=== PATIENT | female | born 1955 | race Caucasian/White ===

== ENCOUNTER 2017-03-19 20:38 | Emergency (ER) | payer MEDICARE ==
[2017-03-19] MEDS ORDERED: NORMAL SALINE 1000 ML 1,000 ML IV ONE (21:38)
--- NOTE | 2017-03-19 21:40 | ER Document Report ---
ED General - General Chief Complaint: Diarrhea Stated Complaint: WEAKNESS/BODYACHES Time Seen by Provider: 03/19/17 21:38 Notes: The patient is a 61-year-old female presents with generalized body aches and weakness for the past 3 days. She said that she has had some watery diarrhea and nasal congestion during this time. Patient said that her diarrhea has now resolved. Patient denies nausea, vomiting, recent travel, blood in stool, fevers, sick contacts, chest pain, shortness of breath or leg swelling. TRAVEL OUTSIDE OF THE [place] IN LAST 30 DAYS: No - Related Data Allergies/Adverse Reactions: No Known Allergies Allergy (Verified 03/19/17 20:41) Past Medical History - General Information source: Patient - Social History Smoking Status: Unknown if Ever Smoked Family History: None - Past Medical History Cardiac Medical History: Denies: Hx Atrial Fibrillation, Hx Congestive Heart Failure, Hx Coronary Artery Disease, Hx Heart Attack, Hx Hypercholesterolemia, Hx Hypertension, Hx Peripheral Vascular Disease, Hx Heart Murmur Musculoskeltal Medical History: Reports Hx Arthritis, Denies Hx Fibromyalgia, Denies Hx Muscular Dystrophy Psychiatric Medical History: Reports: Hx Depression Denies: Hx Bipolar Disorder, Hx Post Traumatic Stress Disorder, Hx Schizophrenia Traumatic Medical History: Denies: Hx Fractures Past Surgical History: Reports: Hx Orthopedic Surgery - back right knee. Denies : Hx Appendectomy, Hx Bowel Surgery, Hx Section, Hx Cholecystectomy, Hx Coronary Artery Bypass Graft, Hx Gastric Bypass Surgery, Hx Herniorrhaphy, Hx Hysterectomy, Hx Mastectomy, Hx Pacemaker, Hx Tonsillectomy, Hx Tubal Ligation - Immunizations Hx Diphtheria, Pertussis, Tetanus Vaccination: No Review of Systems - Review of Systems Notes: REVIEW OF SYSTEMS: CONSTITUTIONAL: -fevers, -chills EENT: -eye pain, -difficulty swallowing, +nasal congestion CARDIOVASCULAR: -chest pain, -syncope. RESPIRATORY: -cough, -SOB GASTROINTESTINAL: -abdominal pain, -nausea, -vomiting, +diarrhea GENITOURINARY: -dysuria, -hematuria MUSCULOSKELETAL: -back pain, -neck pain SKIN: -rash or skin lesions. HEMATOLOGIC: -easy bruising or bleeding. LYMPHATIC: -swollen, enlarged glands. NEUROLOGICAL: -altered mental status or loss of consciousness, -headache, - neurologic symptoms PSYCHIATRIC: -anxiety, -depression. ALL OTHER SYSTEMS REVIEWED AND NEGATIVE. Physical Exam - Vital signs Vitals: Temp Pulse Resp BP Pulse Ox 98.5 F 77 20 133/69 H 97 03/19/17 20:49 03/19/17 20:49 03/19/17 20:49 03/19/17 20:49 03/19/17 20:49 - Notes Notes: PHYSICAL EXAMINATION: GENERAL: Well-appearing, well-nourished and in no acute distress. HEAD: Atraumatic, normocephalic. EYES: Pupils equal round and reactive to light, extraocular movements intact, sclera anicteric, conjunctiva are normal. ENT: nares patent, oropharynx clear without exudates. Moist mucous membranes. NECK: Normal range of motion, supple without lymphadenopathy LUNGS: Breath sounds clear to auscultation bilaterally and equal. No wheezes rales or rhonchi. HEART: Regular rate and rhythm without murmurs ABDOMEN: Soft, nontender, normoactive bowel sounds. No guarding, no rebound. No masses appreciated. EXTREMITIES: Normal range of motion, no pitting or edema. No cyanosis. NEUROLOGICAL: Cranial nerves grossly intact. Normal speech, normal gait. Normal sensory and motor exams. PSYCH: Normal mood, normal affect. SKIN: Warm, Dry, normal turgor, no rashes or lesions noted. Course - Re-evaluation Re-evalutation: Patient appears very well and her abdomen is completely soft and nontender. Her last episode of diarrhea was about 14 hours ago. Blood work is unremarkable , other than slight hypokalemia. Instructed her to stay hydrated and return to the ER if she has any worsening symptoms. - Vital Signs Vital signs: Temp Pulse Resp BP Pulse Ox 98.5 F 77 20 133/69 H 97 03/19/17 20:49 03/19/17 20:49 03/19/17 20:49 03/19/17 20:49 03/19/17 20:49 - Laboratory Result Diagrams: 03/19/17 22:00 03/19/17 22:00 Laboratory results interpreted by me: 03/19/17 03/19/17 22:00 22:00 RDW 16.4 H Eosinophils % 7.0 H Potassium 3.2 L Carbon Dioxide 21 L Discharge - Discharge Clinical Impression: Nasal congestion, Hypokalemia Diarrhea Qualifiers: Diarrhea type: unspecified type Qualified Code(s): R19.7 - Diarrhea, unspecified Condition: Stable Disposition: HOME, SELF-CARE Additional Instructions: DIARRHEA, NON-SPECIFIC: Diarrhea means frequent, watery stools. There are many causes. Any problem that keeps the intestinal tract from absorbing water from the stool can lead to diarrhea. A sudden new diarrhea problem is usually caused by a virus, food sensitivity, toxic bacteria, or drugs. In this case, we expect the problem to go away soon. Testing is done only if you seem seriously ill from the diarrhea. If you have chronic diarrhea, or diarrhea that keeps coming back, we need to find out why. Chronic diarrhea can be due to inflammation of the bowels such as Crohn's disease or ulcerative colitis, food sensitivity such as intolerance to lactose or wheat protein, irritable bowel syndrome, and other problems. If your diarrhea is a significant problem but it's not clear why you have it, we' ll refer you to a specialist for further testing. During an episode of diarrhea, drink small amounts (two to six ounces) of clear liquids (soft drinks, sport drinks, herb teas, broth, etc). Take fluids frequently to prevent dehydration. It's usually not a problem to take mild anti- diarrhea medication such as Kaopectate or Pepto-Bismol. As the diarrhea eases, advance to small amounts of bland food (mashed potato, toast) for 24 hours. Call the physician if blood appears in your vomit or stool, if vomiting lasts longer than 24 hours, if the abdominal pain worsens or becomes localized to one area, if you develop high fever, or if you become lightheaded and weak. VIRAL SYNDROME: The physician has diagnosed a viral infection. Viruses not only cause "colds," but can cause many different symptoms including generalized aching, fever, headache, cough, diarrhea, nausea, vomiting, and fatigue. The treatment, for the most part, is simply relief of symptoms. This means that antibiotics are usually not given. Rest, fluids, pain medications and, occasionally, medication for the specific symptoms that are most bothersome will be prescribed. Use good handwashing to avoid passing the virus to others. Shared toys should be cleaned with disinfectant. Clean the toilets, sinks, and counter surfaces in bathrooms. Launder clothing in hot water. Contact the physician if you develop any new or unusual symptoms such as severe headache, stiff neck, high fever, chest pain, productive cough, or shortness of breath. You should be rechecked if you don't see marked improvement within seven to 10 days. INTRAVENOUS (I V) FLUIDS: As part of your care today, you received intravenous (IV) fluids. IV fluids are administered to patients who are dehydrated or to those who have certain chemical (electrolyte) abnormalities that need correcting. FOLLOW-UP CARE: If you have been referred to a physician for follow-up care, call the physician s office for an appointment as you were instructed or within the next two days. If you experience worsening or a significant change in your symptoms, notify the physician immediately or return to the Emergency Department at any time for re-evaluation. HYPOKALEMIA: You have an abnormally decreased level of serum potassium. Hypokalemia may cause weakness, fatigue, or heart rhythm abnormalities. Sometimes there are no symptoms at all. Usually, low serum potassium is due to taking diuretics ( water pills). It can also be due to excessive vomiting or diarrhea. If no obvious cause is evident, further evaluation will be necessary. Treatment is usually oral potassium supplements. Take these exactly as prescribed. You may also want to select foods which are naturally high in potassium -- fruits (such as bananas, cantaloupe, grapes, oranges, prunes, tomatoes), fresh vegetables (potatoes, spinach, beans, peas), orange or tomato juice, tomato pasta sauce, milk, fish (halibut, tuna, salmon, bautista) A follow-up blood test is usually performed to assure that the potassium is returning to normal. Call the physician if you suffer severe weakness, muscle twitching or cramping, palpitations (pounding or irregular heartbeat), or any other new or alarming symptoms. POTASSIUM: A potassium-containing medication has been prescribed. This is usually used to treat potassium depletion caused by diuretics or by vomiting and diarrhea. This type of medicine is available in many forms, including elixirs, powders, fruity drinks, and pills. If one type is not working out for you, another can be substituted. Potassium can cause stomach upset. This can be prevented by taking it with meals. Do not take more than your doctor recommends. Notify your doctor if you develop repeated vomiting, black or bloody stool , severe weakness or numbness. FOODS HIGH IN POTASSIUM: baked potato with skin 1080 mg tomato pasta sauce, 1 cup 940 sweet potato with skin 690 orange juice, 1 cup 480 brazilian chard 480 tuna, 3 oz 480 cantaloupe, 1 cup 430 banana 420 spinach 420 yogurt, plain, nofat, 6 oz 400 milk, 1 cup 370 watermelon, 2 cups 340 tomato, 1/2 cup 210 Other foods high in potassium are most other fruits and vegetables and fish. FOLLOW-UP CARE: If you have been referred to a physician for follow-up care, call the physician s office for an appointment as you were instructed or within the next two days. If you experience worsening or a significant change in your symptoms, notify the physician immediately or return to the Emergency Department at any time for re-evaluation. Forms: Elevated Blood Pressure
[2017-03-19 22:23] LABS: ABSOLUTE EOSINOPHILS # (AUTO) 0.3 10^3/uL (0.0-0.6); ABSOLUTE LYMPHOCYTES (AUTO) 1.3 10^3/uL (0.5-4.7); ABSOLUTE MONOCYTES (AUTO) 0.5 10^3/uL (0.1-1.4); ABSOLUTE NEUT (AUTO) 2.5 10^3/uL (1.7-8.2); HEMATOCRIT 37.8 % (36.0-47.0); HEMOGLOBIN 12.6 g/dL (12.0-15.5); LYMPHOCYTES % (AUTO) 27.2 % (13-45); MEAN CORPUSCULAR HEMOGLOBIN 28.5 pg (27.0-33.4); MEAN CORPUSCULAR HGB CONC 33.3 g/dL (32.0-36.0); MEAN CORPUSCULAR VOLUME 86 fl (80-97); MONOCYTES % (AUTO) 11.1 % (3-13); RED BLOOD COUNT 4.41 10^6/uL (3.72-5.28); RED CELL DISTRIBUTION WIDTH 16.4 % (11.5-14.0); SEGMENTED NEUTROPHILS % (AUTO) 53.7 % (42-78); WHITE BLOOD COUNT 4.7 10^3/uL (4.0-10.5)
[2017-03-19 22:44] LABS: ALANINE AMINOTRANSFERASE 26 U/L (9-52); ALBUMIN 3.8 g/dL (3.5-5.0); ALKALINE PHOSPHATASE 85 U/L (38-126); ANION GAP 13 (5-19); ASPARTATE AMINO TRANSFERASE 21 U/L (14-36); BILIRUBIN,DIRECT 0.2 mg/dL (0.0-0.4); BILIRUBIN,TOTAL 0.5 mg/dL (0.2-1.3); BLOOD UREA NITROGEN 7 mg/dL (7-20); CALCIUM 9.5 mg/dL (8.4-10.2); CARBON DIOXIDE 21 mmol/L (22-30); CHLORIDE 107 mmol/L (98-107); CREATININE RESULT 0.81 mg/dL (0.52-1.25); GLUCOSE 100 mg/dL (75-110); LIPASE 33.7 U/L (23-300); POTASSIUM 3.2 mmol/L (3.6-5.0); SODIUM 141.2 mmol/L (137-145); TOTAL PROTEIN 7.2 g/dL (6.3-8.2)
[2017-03-19] MEDS ORDERED: POTASSIUM CHLORIDE 10 MEQ TABLET.SA PO ONE (22:52)
[2017-03-19 23:28] VITALS: BP 122/66
== END 2017-03-19 23:26 | disposition home or self-care (01) ==
LOC: ER 20:38
DX: R19.7 Diarrhea, unspecified (principal); R09.81 Nasal congestion; E87.6 Hypokalemia; R53.1 Weakness; R52 Pain, unspecified
CPT/HCPCS: 99284; 96360; 36415; 83690; 85025; 80053; J7030; A9270

== ENCOUNTER → 2018-02-06 | Outpatient (CLI) | payer MEDICARE ==
--- NOTE | 2018-02-06 15:37 | RADIOLOGY REPORT (SQ) ---
EXAM DESCRIPTION: CHEST PA/LATERAL COMPLETED DATE/TIME: 02/06/2018 3:17 pm REASON FOR STUDY: Z01.818 PRE OP COMPARISON: Two-view chest 08/14/2015 EXAM PARAMETERS: NUMBER OF VIEWS: two views TECHNIQUE: Digital Frontal and Lateral radiographic views of the chest acquired. RADIATION DOSE: NA LIMITATIONS: none FINDINGS: LUNGS AND PLEURA: No opacities, masses or pneumothorax. No pleural effusion. MEDIASTINUM AND HILAR STRUCTURES: No masses or contour abnormalities. HEART AND VASCULAR STRUCTURES: Heart normal size. No evidence for failure. BONES: No acute findings. HARDWARE: None in the chest. OTHER: No other significant finding. IMPRESSION: NO SIGNIFICANT RADIOGRAPHIC FINDING IN THE CHEST. TECHNICAL DOCUMENTATION: JOB ID: [id number] [employer]- All Rights Reserved Reading location - IP/workstation name: [email or web address]
[2018-02-06 15:55] LABS: ABSOLUTE EOSINOPHILS # (AUTO) 0.1 10^3/uL (0.0-0.6); ABSOLUTE LYMPHOCYTES (AUTO) 2.1 10^3/uL (0.5-4.7); ABSOLUTE MONOCYTES (AUTO) 0.5 10^3/uL (0.1-1.4); ABSOLUTE NEUT (AUTO) 3.4 10^3/uL (1.7-8.2); BASOPHILS % (AUTO) 0.6 % (0-2); EOSINOPHILS % (AUTO) 1.7 % (0-6); HEMATOCRIT 39.2 % (36.0-47.0); HEMOGLOBIN 13.3 g/dL (12.0-15.5); MEAN CORPUSCULAR HEMOGLOBIN 29.5 pg (27.0-33.4); MEAN CORPUSCULAR HGB CONC 33.8 g/dL (32.0-36.0); MEAN CORPUSCULAR VOLUME 87 fl (80-97); MONOCYTES % (AUTO) 8.1 % (3-13); PLATELET COUNT 202 10^3/uL (150-450); RED BLOOD COUNT 4.49 10^6/uL (3.72-5.28); RED CELL DISTRIBUTION WIDTH 14.7 % (11.5-14.0); SEGMENTED NEUTROPHILS % (AUTO) 55.6 % (42-78); TOTAL CELLS COUNTED % (AUTO) 100 %; WHITE BLOOD COUNT 6.1 10^3/uL (4.0-10.5)
[2018-02-06 16:03] LABS: APPEARANCE,URINE CLEAR; BILIRUBIN,URINE NEGATIVE (NEGATIVE); COLOR,URINE YELLOW; GLUCOSE, URINE NEGATIVE (NEGATIVE); KETONES,URINE NEGATIVE (NEGATIVE); LEUKOCYTE ESTERASE,URINE TRACE (NEGATIVE); NITRITE,URINE NEGATIVE (NEGATIVE); PROTEIN,URINE NEGATIVE (NEGATIVE); URINE SPECIFIC GRAVITY 1.008; UROBILINOGEN,URINE NEGATIVE mg/dL (<2.0)
[2018-02-06 16:18] LABS: ANION GAP 12 (5-19); BLOOD UREA NITROGEN 13 mg/dL (7-20); CALCIUM 9.5 mg/dL (8.4-10.2); CARBON DIOXIDE 29 mmol/L (22-30); CHLORIDE 101 mmol/L (98-107); GLUCOSE 110 mg/dL (75-110); POTASSIUM 4.2 mmol/L (3.6-5.0); SODIUM 141.5 mmol/L (137-145)
--- NOTE | 2018-02-06 20:11 | EKG REPORT ---
SEVERITY:- ABNORMAL ECG - SINUS RHYTHM VENTRICULAR TRIGEMINY PROBABLE LEFT ATRIAL ABNORMALITY PROBABLE INFERIOR INFARCT, OLD : Confirmed by: Va Corona 06-Feb-2018 20:10:15
== END ==
LOC: OD 14:33
PROVIDERS: ATTEND Orthopaedic Surgery
DX: Z01.810 Encounter for preprocedural cardiovascular examination (principal); Z01.812 Encounter for preprocedural laboratory examination; Z01.818 Encounter for other preprocedural examination
CPT/HCPCS: 36415; 71046; 80048; 81001; 85025; 93005; 93010

== ENCOUNTER 2018-03-06 10:39 | Inpatient (IN) | payer MEDICARE ==
[~2018-03-06 10:39] MED LIST: BUPIVACAINE HCL 0.25% /EPINEPHRINE INJ/PF 30 ML SDV ONE; BUPIVACAINE INJ/PF LIPOSOME/PF 266 MG/20 ML SDV INJ PRN; CEFAZOLIN INJ 1 GM VIAL IV PRN; IBUPROFEN 800 MG in DEXTROSE 5%-WATER 250 ML IV PRN; LACTATED RINGERS 1000 ML IV PRN; LANSOPRAZOLE 15 MG TAB.RAP.DR PO PRN; OXYCODONE HCL SR 10 MG TABLET PO PRN; THROMBIN (BOVINE) 5000 UNIT EPITAXIS KIT ONE; THROMBIN (BOVINE) TOPICAL 20000 UNIT VIAL ONE; VANCOMYCIN HCL 1,000 MG in DEXTROSE 5%-WATER 250 ML IV PRN
[2018-03-06] MEDS ORDERED: OXYCODONE HCL SR 10 MG TABLET PO ONE (10:49)
[2018-03-06] MEDS ORDERED: LANSOPRAZOLE 15 MG TAB.RAP.DR ONE (10:49)
[2018-03-06] MEDS ORDERED: CEFAZOLIN INJ 1 GM VIAL ONE (10:49)
[2018-03-06] MEDS ORDERED: TRANEXAMIC ACID INJ/PF 1,000 MG/10 ML SDV IV ONE ×2 (13:14→16:30)
[2018-03-06] MEDS ORDERED: MIDAZOLAM 2 MG/2 ML INJ ONE (13:14)
[2018-03-06] MEDS ORDERED: HYDROMORPHONE HCL INJ/PF 2 MG/ML AMPULE ONE (13:14)
[2018-03-06] MEDS ORDERED: EPHEDRINE SULFATE INJ 50 MG/1 ML AMPULE ONE (13:14)
[2018-03-06] MEDS ORDERED: FENTANYL CITRATE INJ/PF 250 MCG/5 ML AMPULE ONE (13:14)
[2018-03-06] MEDS ORDERED: PROPOFOL INJ 200 MG/20 ML VIAL IV ONE (13:15)
[2018-03-06] MEDS ORDERED: ONDANSETRON HCL INJ/PF 4 MG/2 ML SDV ONE (13:57)
[2018-03-06] MEDS ORDERED: SUCCINYLCHOLINE CHLORIDE INJ 200 MG/10 ML VIAL ONE (13:57)
[2018-03-06] MEDS ORDERED: DIPHENHYDRAMINE HCL 50 MG/ML VIAL IV PRN ×2 (14:09→14:43)
[2018-03-06] MEDS ORDERED: FENTANYL CITRATE INJ/PF 100 MCG/2 ML AMPUL IV PRN ×3 (14:09)
[2018-03-06] MEDS ORDERED: PROMETHAZINE HCL INJ 25 MG/1 ML VIAL IV PRN (14:09)
[2018-03-06] MEDS ORDERED: MEPERIDINE HCL/PF INJ 25 MG/1 ML DISP.SYRIN IV PRN (14:09)
[2018-03-06] MEDS ORDERED: ZOLPIDEM TARTRATE 5 MG TABLET PO PRN (14:42)
--- NOTE | 2018-03-06 14:42 | Operative Report ---
Operative Report DATE OF SURGERY: 03/06/18 PREOPERATIVE DIAGNOSIS: Right hip arthritis OPERATION: Right hip arthroplasty SURGEON: VASILE DRISCOLL ANESTHESIA: Spinal TISSUE REMOVED OR ALTERED: Femoral head to pathology ESTIMATED BLOOD LOSS: 100 PROCEDURE: Implants used: Femur: Jackson Accolade 2 stem, size 7 Acetabular shell: 58 mm hemispherical shell Liner: 36 mm flat cross-link polyethylene liner Head: 36 mm chrome cobalt head standard neck The patient is placed in a left lateral decubitus position on the operating table. The right lower extremity and hindquarter is prepped and draped in a sterile fashion. A curvilinear incision was made over the greater trochanter a posterior approach the hip was taken. The femoral head is dislocated and the femoral neck transected using an oscillating saw. Attention was next turned to the acetabulum. Soft tissues cleared off the acetabulum using electrocautery. The acetabulum was then prepared using a series of hemispherical reamers until a 58 millimeters reamer is seated. Subsequently a 58 millimeters Willi titanium hemispherical shell is impacted into position. A standard flat 36 millimeters cross-link liner is impacted into the shell. Attention was next turned to the femur. Access is gained to the femoral canal using a box osteotome to the piriformis fossa. The femur is then prepared using a series of broaches until a number 7 broach is seated. A trial reduction was now performed using a 36 millimeters head with standard neck. Preoperative leg length was recreated and is excellent anterior posterior stability. A decision was made to proceed with the above construct. All trial implants were removed. The wound is irrigated with pulsed lavage. A number 7 stem is impacted into the femoral canal. A trial reduction was again performed with a 36 mm head and a standard neck. Findings as previously. The hip was dislocated one last time and the final chrome-cobalt head is impacted onto the trunnion. The hip was reduced. Wound is copiously irrigated with pulsed lavage. Sent closed in layers using interrupted Vicryl followed by leland. A sterile dressing is applied and the patient's returned to recovery room in satisfactory patient.
[2018-03-06] MEDS ORDERED: ONDANSETRON 4 MG TAB.RAPDIS PO PRN (14:43)
[2018-03-06] MEDS ORDERED: ACETAMINOPHEN 325 MG TABLET PO PRN (14:43)
[2018-03-06] MEDS ORDERED: RINGERS SOLUTION,LACTATED 1,000 ML IV PRN (14:43)
[2018-03-06] MEDS ORDERED: OXYCODONE HCL IR 5 MG TABLET PO PRN (14:43)
[2018-03-06] MEDS ORDERED: ONDANSETRON HCL INJ/PF 4 MG/2 ML SDV IV PRN (14:43)
[2018-03-06] MEDS ORDERED: MORPHINE SULFATE 10 MG/ML INJ IV PRN ×4 (14:43)
[2018-03-06] MEDS ORDERED: MAG HYDROX/AL HYDROX/SIMETH SUSP 30 ML UDCUP PO PRN (14:43)
[2018-03-06] MEDS: FENTANYL CITRATE INJ/PF 100 MCG/2 ML AMPUL ONE ×2 (15:23→15:28)
--- NOTE | 2018-03-06 16:03 | RADIOLOGY REPORT (SQ) ---
EXAM DESCRIPTION: PELVIS AP COMPLETED DATE/TIME: 03/06/2018 3:44 pm REASON FOR STUDY: Post Op Long Cassette in PACU M16.11 UNILATERAL PRIMARY OSTEOARTHRITIS, RIGHT HI P COMPARISON: 09/15/2015 NUMBER OF VIEWS: One view TECHNIQUE: AP Pelvis LIMITATIONS: None. FINDINGS: MINERALIZATION: Normal. HIPS: Status post interval right hip total arthroplasty with expected postoperative changes and overl sabrina skin leland. No evidence of perihardware fracture. Redemonstrated left hip total arthroplasty . PELVIS AND SACRUM: No acute fracture or dislocation. No worrisome bone lesions. PUBIS AND ISCHIUM: No acute fracture. LOWER LUMBAR SPINE: No significant findings as visualized. SOFT TISSUES: No findings. OTHER: No other significant finding. IMPRESSION: Status post interval right hip total arthroplasty with expected postoperative changes an d overlying skin leland. No evidence of perihardware fracture. TECHNICAL DOCUMENTATION: JOB ID: [id number] [employer]- All Rights Reserved Reading location - IP/workstation name: [email or web address]
[2018-03-06] MEDS: SENNOSIDES/DOCUSATE 8.6-50 MG 1 EACH TABLET PO SCH (17:25)
[2018-03-06] MEDS: PREGABALIN 75 MG CAPSULE PO SCH (21:17)
[2018-03-06] MEDS: OXYCODONE HCL SR 10 MG TABLET PO SCH (21:18)
[2018-03-06] MEDS: IBUPROFEN 800 MG in NORMAL SALINE 250 ML IV SCH (21:19)
[2018-03-07] MEDS ORDERED: VANCOMYCIN HCL 1,000 MG in DEXTROSE 5%-WATER 250 ML IV ONE (03:00)
[2018-03-07] MEDS: PREGABALIN 75 MG CAPSULE PO SCH ×3 (05:24→21:42)
[2018-03-07] MEDS: LANSOPRAZOLE 30 MG TAB.RAP.DR PO SCH (05:24)
[2018-03-07] MEDS: IBUPROFEN 800 MG in NORMAL SALINE 250 ML IV SCH ×3 (06:16→21:42)
[2018-03-07 06:55] LABS: HEMATOCRIT 34.3 % (36.0-47.0); HEMOGLOBIN 11.4 g/dL (12.0-15.5); MEAN CORPUSCULAR HEMOGLOBIN 28.6 pg (27.0-33.4); MEAN CORPUSCULAR HGB CONC 33.1 g/dL (32.0-36.0); MEAN CORPUSCULAR VOLUME 87 fl (80-97); PLATELET COUNT 124 10^3/uL (150-450); RED BLOOD COUNT 3.97 10^6/uL (3.72-5.28); RED CELL DISTRIBUTION WIDTH 14.4 % (11.5-14.0); WHITE BLOOD COUNT 6.6 10^3/uL (4.0-10.5)
--- NOTE | 2018-03-07 07:10 | PDOC PROGRESS REPORT ---
Subjective Progress Note for:: 03/07/18 Reason For Visit: RIGHT HIP ARTHRITIS 62-year-old white female postop day 1 status post right hip arthroplasty. Patient with complaints of pain overnight. Physical Exam Vital Signs: Temp Pulse Resp BP Pulse Ox 36.9 C 80 18 118/66 92 03/06/18 20:20 03/06/18 20:20 03/06/18 20:20 03/06/18 20:20 03/06/18 20:20 Intake & Output 03/06/18 03/07/18 03/08/18 06:59 06:59 06:59 Intake Total 4422 Output Total 2500 Balance 1922 Weight 113.5 kg General appearance: PRESENT: mild distress, obese Head exam: PRESENT: normocephalic Respiratory exam: PRESENT: unlabored Cardiovascular exam: PRESENT: RRR Pulses: PRESENT: +1 pedal pulses bilateral Vascular exam: PRESENT: normal capillary refill GI/Abdominal exam: PRESENT: soft Rectal exam: PRESENT: deferred Extremities exam: PRESENT: other - Right hip dressing clean dry and intact. Leg lengths equal. Distal neurovascular examination is intact. Neurological exam: PRESENT: alert, awake, oriented to person, oriented to place , oriented to time, oriented to situation. ABSENT: motor sensory deficit Psychiatric exam: PRESENT: appropriate affect, normal mood. ABSENT: homicidal ideation, suicidal ideation Skin exam: PRESENT: dry, intact, warm. ABSENT: cyanosis, rash Results Laboratory Results: 03/07/18 05:48 03/06/18 03/07/18 11:21 05:48 WBC 6.6 RBC 3.97 Hgb 11.4 L Hct 34.3 L MCV 87 MCH 28.6 MCHC 33.1 RDW 14.4 H Plt Count 124 L Blood Type O NEGATIVE Antibody Screen NEGATIVE Impressions: Pelvis X-Ray 03/06/18 14:44 IMPRESSION: Status post interval right hip total arthroplasty with expected postoperative changes and overlying skin leland. No evidence of perihardware fracture. Status: Imported from PACS Assessment & Plan - Diagnosis (1) Arthritis of right hip Is this a current diagnosis for this admission?: Yes Plan: Patient be mobilized with physical therapy and weightbearing as tolerated basis. Anticipate discharge home with home health services when patient's functional capacity permits. - Time Time Spent with patient: 15-24 minutes Anticipated discharge: Home with Homehealth Within: within 24 hours
[2018-03-07 07:20] LABS: ANION GAP 9 (5-19); BLOOD UREA NITROGEN 14 mg/dL (7-20); CALCIUM 8.9 mg/dL (8.4-10.2); CARBON DIOXIDE 25 mmol/L (22-30); CHLORIDE 105 mmol/L (98-107); GLUCOSE 132 mg/dL (75-110); POTASSIUM 4.2 mmol/L (3.6-5.0); SODIUM 139.2 mmol/L (137-145)
[2018-03-07] MEDS: ASPIRIN 81 MG TABLET, CHEWABLE PO SCH (10:00)
[2018-03-07] MEDS: SENNOSIDES/DOCUSATE 8.6-50 MG 1 EACH TABLET PO SCH ×2 (10:00→17:35)
[2018-03-07] MEDS: OXYCODONE HCL SR 10 MG TABLET PO SCH ×2 (10:00→21:43)
[2018-03-07] MEDS: PRENATAL VITAMIN W DHA CAPSULE PO SCH (10:00)
[2018-03-08] MEDS: IBUPROFEN 800 MG in NORMAL SALINE 250 ML IV SCH (05:34)
[2018-03-08] MEDS: PREGABALIN 75 MG CAPSULE PO SCH (05:34)
[2018-03-08] MEDS: LANSOPRAZOLE 30 MG TAB.RAP.DR PO SCH (05:34)
[2018-03-08 05:56] LABS: HEMOGLOBIN 10.9 g/dL (12.0-15.5); MEAN CORPUSCULAR HEMOGLOBIN 29.6 pg (27.0-33.4); MEAN CORPUSCULAR VOLUME 87 fl (80-97); PLATELET COUNT 136 10^3/uL (150-450); RED BLOOD COUNT 3.68 10^6/uL (3.72-5.28); RED CELL DISTRIBUTION WIDTH 14.6 % (11.5-14.0); WHITE BLOOD COUNT 8.4 10^3/uL (4.0-10.5)
--- NOTE | 2018-03-08 07:12 | PDOC DISCHARGE SUMMARY ---
General - Admit/Disc Date/PCP Admission Date/Primary Care Provider: 03/06/18 10:39 Discharge Date: 03/08/18 - Discharge Diagnosis (1) Arthritis of right hip Is this a current diagnosis for this admission?: Yes - Additional Information Resuscitation Status: Full Code Home Medications: Oxycodone HCl 15 mg PO QID 02/23/18 Pregabalin [Lyrica] 150 mg PO TID 02/23/18 Aspirin [Ecotrin 81 mg EC Tablet] 81 mg PO DAILY 03/06/18 Zolpidem Tartrate [Ambien 5 mg Tablet] 5 mg PO HSP PRN 03/06/18 History of Present Illness History of Present Illness: HINA JAIMES is a 62 year old female Patient is a 62-year-old white female with progressive right hip pain and functional disability second osteoarthritis. Patient is admitted for elective right hip arthroplasty. Hospital Course Hospital Course: Patient is admitted through the operating where she undergoes uncomplicated right hip arthroplasty. She is returned to floor in satisfactory condition. She makes excellent progress with physical therapy in the first postoperative day. Dressing is changed on the second postoperative day. Wound is well approximated with leland without erythema. There is mild surrounding ecchymosis. There is mild serous drainage. Leg lengths are equal. Distal neurovascular examination is intact. Physical Exam Vital Signs: Temp Pulse Resp BP Pulse Ox 37.5 C 86 18 125/63 98 03/07/18 23:16 03/07/18 23:16 03/07/18 23:16 03/07/18 23:16 03/07/18 23:16 Intake & Output 03/07/18 03/08/18 03/09/18 06:59 06:59 06:59 Intake Total 4422 2350 Output Total 2500 Balance 1922 2350 Weight 113.5 kg General appearance: PRESENT: no acute distress, obese Head exam: PRESENT: normocephalic Respiratory exam: PRESENT: unlabored Cardiovascular exam: PRESENT: RRR Pulses: PRESENT: +1 pedal pulses bilateral Vascular exam: PRESENT: normal capillary refill GI/Abdominal exam: PRESENT: soft Rectal exam: PRESENT: deferred Extremities exam: PRESENT: other - Right hip dressing changed on postop day 2. Wound is well approximated with leland. There is no erythema. There is scant serosanguineous drainage. Leg lengths are equal. Distal neurovascular examination is intact. Neurological exam: PRESENT: alert, awake, oriented to person, oriented to place , oriented to time, oriented to situation. ABSENT: motor sensory deficit Psychiatric exam: PRESENT: appropriate affect, normal mood. ABSENT: homicidal ideation, suicidal ideation Skin exam: PRESENT: dry, intact, warm. ABSENT: cyanosis, rash Results Laboratory Results: 03/08/18 05:10 03/07/18 05:48 03/07/18 03/08/18 05:48 05:10 WBC 8.4 RBC 3.68 L Hgb 10.9 L Hct 32.0 L MCV 87 MCH 29.6 MCHC 34.0 RDW 14.6 H Plt Count 136 L Sodium 139.2 Potassium 4.2 Chloride 105 Carbon Dioxide 25 Anion Gap 9 BUN 14 Creatinine 0.66 Est GFR ( Amer) > 60 Est GFR (Non-Af Amer) > 60 Glucose 132 H Calcium 8.9 Impressions: Pelvis X-Ray 03/06/18 14:44 IMPRESSION: Status post interval right hip total arthroplasty with expected postoperative changes and overlying skin leland. No evidence of perihardware fracture. Status: Imported from PACS Qualifiers - * PATIENT BEING DISCHARGED WITH ANY OF THE FOLLOWING DIAGNOSIS: No VTE patient discharged on overlapping Therapy?: Yes Plan Discharge Plan: Patient to be discharged home with home health nursing and DME. Home health nursing can change the right hip dressing on a as needed basis with [facility]. Follow-up with Dr. Salinas and [facility] for surgery in 2 weeks for staple removal. Time Spent: Less than 30 Minutes
[2018-03-08] MEDS: PRENATAL VITAMIN W DHA CAPSULE PO SCH (09:24)
[2018-03-08] MEDS: ASPIRIN 81 MG TABLET, CHEWABLE PO SCH (09:25)
[2018-03-08] MEDS: SENNOSIDES/DOCUSATE 8.6-50 MG 1 EACH TABLET PO SCH (09:25)
[2018-03-08] MEDS: OXYCODONE HCL SR 10 MG TABLET PO SCH (09:25)
[2018-03-08 11:00] VITALS: BP 125/67
== END 2018-03-08 12:50 | disposition home health service (06) | DRG 470 ==
LOC: INOR 10:39 → 4S 16:17
PROVIDERS: ADMIT Orthopaedic Surgery; ATTEND Orthopaedic Surgery
PROC: 0SR902A Replacement of Right Hip Joint with Metal on Polyethylene Synthetic Substitute, Uncemented, Open Approach (ICD-10-PCS; principal; 2018-03-06 12:30)
PROC: 3E02340 Introduction of Influenza Vaccine into Muscle, Percutaneous Approach (ICD-10-PCS; 2018-03-08)
DX: M16.11 Unilateral primary osteoarthritis, right hip (principal); F41.9 Anxiety disorder, unspecified; Z23 Encounter for immunization; Z79.82 Long term (current) use of aspirin; Z79.899 Other long term (current) drug therapy; Z83.3 Family history of diabetes mellitus
CPT/HCPCS: 01214; 36415; 72170; 80048; 85027; 86850; 86900; 86901; 88304; 88311; 90471; 90686; 94799; C1776; G0008; G8978-GP; G8979-GP; G8987-GO; G8988-GO; J0330; J0690; J1170; J1741; J2250; J2270; J2405; J2704; J3010; J3370; J3490; J7050; J7060; J7120

== ENCOUNTER 2018-03-29 09:34 | Inpatient (IN) | payer MEDICARE ==
[2018-03-27 10:03] LABS: HEMATOCRIT 28.5 % (36.0-47.0); HEMOGLOBIN 9.5 g/dL (12.0-15.5); MEAN CORPUSCULAR HEMOGLOBIN 28.4 pg (27.0-33.4); MEAN CORPUSCULAR HGB CONC 33.4 g/dL (32.0-36.0); MEAN CORPUSCULAR VOLUME 85 fl (80-97); PLATELET COUNT 281 10^3/uL (150-450); RED BLOOD COUNT 3.35 10^6/uL (3.72-5.28); RED CELL DISTRIBUTION WIDTH 13.9 % (11.5-14.0); WHITE BLOOD COUNT 8.8 10^3/uL (4.0-10.5)
--- NOTE | 2018-03-27 10:16 | RADIOLOGY REPORT (SQ) ---
EXAM DESCRIPTION: CHEST PA/LATERAL COMPLETED DATE/TIME: 03/27/2018 9:55 am REASON FOR STUDY: PRE-OP COMPARISON: 02/06/2018 EXAM PARAMETERS: NUMBER OF VIEWS: two views TECHNIQUE: Digital Frontal and Lateral radiographic views of the chest acquired. RADIATION DOSE: NA LIMITATIONS: none FINDINGS: LUNGS AND PLEURA: Interval resolution of the right base atelectasis. No acute pulmonary consolidation. No pneumothorax or pleural effusion. MEDIASTINUM AND HILAR STRUCTURES: No masses or contour abnormalities. HEART AND VASCULAR STRUCTURES: Heart normal size. No evidence for failure. BONES: No acute findings. HARDWARE: None in the chest. OTHER: No other significant finding. IMPRESSION: 1. Interval resolution of the right base atelectasis since the prior study dated 2017. 2. NO SIGNIFICANT RADIOGRAPHIC FINDING IN THE CHEST. TECHNICAL DOCUMENTATION: JOB ID: [id number]- All Rights Reserved Reading location - IP/workstation name: [email or web address]
[2018-03-27 10:33] LABS: ANION GAP 8 (5-19); BLOOD UREA NITROGEN 12 mg/dL (7-20); CALCIUM 8.5 mg/dL (8.4-10.2); CARBON DIOXIDE 27 mmol/L (22-30); CHLORIDE 103 mmol/L (98-107); GLUCOSE 122 mg/dL (75-110); POTASSIUM 3.5 mmol/L (3.6-5.0); SODIUM 138.2 mmol/L (137-145)
[2018-03-27 10:50] LABS: ERYTHROCYTE SEDIMENTATION RATE 75 mm/hr (0-30)
[2018-03-27 10:54] LABS: C-REACTIVE PROTEIN 240.7 mg/L (<10.0)
--- NOTE | 2018-03-27 16:33 | EKG REPORT ---
SEVERITY:- ABNORMAL ECG - SINUS RHYTHM VENTRICULAR PREMATURE COMPLEX PROBABLE INFERIOR INFARCT,OLD : Confirmed by: Carly Munoz MD 27-Mar-2018 16:33:05
[~2018-03-29 09:34] MED LIST changes: +BACITRACIN INJ 50,000 UNIT VIAL ONE; -BUPIVACAINE HCL 0.25% /EPINEPHRINE INJ/PF 30 ML SDV ONE; -BUPIVACAINE INJ/PF LIPOSOME/PF 266 MG/20 ML SDV INJ PRN; -CEFAZOLIN INJ 1 GM VIAL IV PRN; -IBUPROFEN 800 MG in DEXTROSE 5%-WATER 250 ML IV PRN; -LANSOPRAZOLE 15 MG TAB.RAP.DR PO PRN; +LIDOCAINE 0.5% INJ-PF (5 MG/ML) 50 ML SDV SUBCUT PRN; -OXYCODONE HCL SR 10 MG TABLET PO PRN; -THROMBIN (BOVINE) 5000 UNIT EPITAXIS KIT ONE; -VANCOMYCIN HCL 1,000 MG in DEXTROSE 5%-WATER 250 ML IV PRN
[2018-03-29] MEDS ORDERED: FENTANYL CITRATE INJ/PF 100 MCG/2 ML AMPUL ONE (10:44)
[2018-03-29] MEDS ORDERED: PROPOFOL INJ 200 MG/20 ML VIAL IV ONE (10:45)
[2018-03-29] MEDS ORDERED: ACETAMINOPHEN 1,000 MG/100 ML RTUPB IV ONE (10:45)
[2018-03-29] MEDS ORDERED: MIDAZOLAM 2 MG/2 ML INJ ONE (10:45)
[2018-03-29] MEDS ORDERED: EPHEDRINE SULFATE INJ 50 MG/1 ML AMPULE ONE (10:58)
[2018-03-29] MEDS ORDERED: BUPIVACAINE HCL/DEX-WATER/PF 15 MG/2 ML AMPULE ONE (10:59)
[2018-03-29] MEDS ORDERED: VANCOMYCIN HCL INJ 1000 MG VIAL ONE ×2 (11:11→11:51)
[2018-03-29] MEDS ORDERED: DIPHENHYDRAMINE HCL 50 MG/ML VIAL IV PRN ×2 (11:45→12:30)
[2018-03-29] MEDS ORDERED: MEPERIDINE HCL/PF INJ 25 MG/1 ML DISP.SYRIN IV PRN (11:45)
[2018-03-29] MEDS ORDERED: FENTANYL CITRATE INJ/PF 100 MCG/2 ML AMPUL IV PRN ×3 (11:45)
[2018-03-29] MEDS ORDERED: PROMETHAZINE HCL INJ 25 MG/1 ML VIAL IV PRN ×2 (11:45)
[2018-03-29] MEDS ORDERED: OXYCODONE-ACETAMINOPHEN 5-325 MG TABLET PO PRN ×3 (11:45→14:07)
[2018-03-29] MEDS ORDERED: BUPIVACAINE HCL 0.25% /EPINEPHRINE INJ/PF 30 ML SDV ONE (12:15)
[2018-03-29] MEDS ORDERED: ONDANSETRON 4 MG TAB.RAPDIS PO PRN (12:30)
[2018-03-29] MEDS ORDERED: (PENDING PHARMACY ID) (Oxycodone Hcl/Acetaminophen [Percocet 10-325 Mg Tablet] 1 TAB) PO SCH (12:30)
[2018-03-29] MEDS ORDERED: MORPHINE SULFATE 10 MG/ML INJ IV PRN ×4 (12:30)
[2018-03-29] MEDS ORDERED: ZOLPIDEM TARTRATE 5 MG TABLET PO PRN (12:30)
[2018-03-29] MEDS ORDERED: ONDANSETRON HCL INJ/PF 4 MG/2 ML SDV IV PRN (12:30)
[2018-03-29] MEDS ORDERED: MAG HYDROX/AL HYDROX/SIMETH SUSP 30 ML UDCUP PO PRN (12:30)
[2018-03-29] MEDS ORDERED: RINGERS SOLUTION,LACTATED 1,000 ML IV PRN (12:30)
--- NOTE | 2018-03-29 12:30 | Operative Report ---
Operative Report DATE OF SURGERY: 03/29/18 PREOPERATIVE DIAGNOSIS: Draining hip wound status post right hip arthroplasty OPERATION: Irrigation debridement of right hip wound and exchange of head and liner SURGEON: VASILE DRISCOLL ANESTHESIA: Spinal TISSUE REMOVED OR ALTERED: Cultures x2 to microbiology ESTIMATED BLOOD LOSS: 100 PROCEDURE: With the patient in a left lateral decubitus position on the operative table the right lower extremity hindquarter prepped and draped in a sterile fashion. The posterior approach the hip is taken in line with the previous surgical approach. Upon reaching deep wound levels cultures are taken for culture and sensitivity including tissue. At this point the hip is dislocated and the femoral head disimpacted. The acetabular is exposed. The acetabular liner was removed. The wound is allen care with 6 L of normal saline containing bacitracin. The wound is again meticulously debrided. A new polyethylene liner is placed into the Willi hemispherical shell and a new 36 mm chrome cobalt head standard neck is impacted onto the trunnion. The hip was reduced. The wound is again irrigated with another 3 L normal saline 10 g bacitracin. The wound was sprinkled with vancomycin powder. The wound is then closed using interrupted PDS suture. The skin edges are debrided. The skin is closed using subcutaneous PDS followed by skin sutures. A sterile compressive dressing was applied and the patient's return to PACU in satisfactory condition.
[2018-03-29] MEDS ORDERED: TRANEXAMIC ACID INJ/PF 1,000 MG/10 ML SDV IV ONE ×2 (13:45→14:00)
[2018-03-29 14:04] LABS: HEMATOCRIT 27.9 % (36.0-47.0); HEMOGLOBIN 9.3 g/dL (12.0-15.5); MEAN CORPUSCULAR HGB CONC 33.3 g/dL (32.0-36.0); MEAN CORPUSCULAR VOLUME 84 fl (80-97); PLATELET COUNT 299 10^3/uL (150-450); RED BLOOD COUNT 3.32 10^6/uL (3.72-5.28); RED CELL DISTRIBUTION WIDTH 14.5 % (11.5-14.0); WHITE BLOOD COUNT 10.2 10^3/uL (4.0-10.5)
[2018-03-29] MEDS ORDERED: OXYCODONE HCL IR 5 MG TABLET PO PRN (14:08)
[2018-03-29] MEDS ORDERED: VANCOMYCIN HCL 1,000 MG in DEXTROSE 5%-WATER 250 ML IV SCH (16:00)
[2018-03-29] MEDS: IBUPROFEN 800 MG in NORMAL SALINE 250 ML IV SCH (17:31)
[2018-03-29] MEDS: SENNOSIDES/DOCUSATE 8.6-50 MG 1 EACH TABLET PO SCH (17:31)
[2018-03-29] MEDS: OXYCODONE HCL IR 5 MG TABLET PO SCH ×2 (17:32→22:32)
[2018-03-29] MEDS: VANCOMYCIN HCL 1,500 MG in DEXTROSE 5%-WATER 250 ML IV SCH (17:40)
[2018-03-29] MEDS: PREGABALIN 50 MG CAPSULE PO SCH (22:30)
[2018-03-29] MEDS: PREGABALIN 100 MG CAPSULE PO SCH (22:30)
[2018-03-29] MEDS: OXYCODONE HCL SR 10 MG TABLET PO SCH (22:31)
[2018-03-30] MEDS ORDERED: VANCOMYCIN HCL 1,000 MG in DEXTROSE 5%-WATER 250 ML IV ONE (00:30)
[2018-03-30] MEDS: IBUPROFEN 800 MG in NORMAL SALINE 250 ML IV SCH ×3 (02:27→17:10)
[2018-03-30] MEDS: VANCOMYCIN HCL 1,500 MG in DEXTROSE 5%-WATER 250 ML IV SCH ×3 (02:27→18:51)
[2018-03-30] MEDS: PREGABALIN 100 MG CAPSULE PO SCH ×3 (05:46→22:01)
[2018-03-30] MEDS: PREGABALIN 50 MG CAPSULE PO SCH ×3 (05:46→22:01)
[2018-03-30] MEDS: LANSOPRAZOLE 30 MG TAB.RAP.DR PO SCH (05:47)
--- NOTE | 2018-03-30 06:55 | PDOC PROGRESS REPORT ---
Subjective Progress Note for:: 03/30/18 Reason For Visit: DRAINING RIGHT HIP WOUND 62-year-old white female status post I&D of a draining right hip wound postop day 1. Patient with reduced pain this morning. Physical Exam Vital Signs: Temp Pulse Resp BP Pulse Ox 36.9 C 74 18 107/52 L 99 03/30/18 00:04 03/30/18 00:04 03/30/18 00:04 03/30/18 00:04 03/30/18 00:04 Intake & Output 03/28/18 03/29/18 03/30/18 06:59 06:59 06:59 Intake Total 67034 Output Total 13132 Balance 1800 Weight 122.7 kg General appearance: PRESENT: no acute distress, mild distress, obese Head exam: PRESENT: normocephalic Respiratory exam: PRESENT: unlabored Cardiovascular exam: PRESENT: RRR Pulses: PRESENT: +1 pedal pulses bilateral Vascular exam: PRESENT: normal capillary refill GI/Abdominal exam: PRESENT: soft Rectal exam: PRESENT: deferred Extremities exam: PRESENT: other - Right hip dressing clean dry and intact. Leg lengths are equal. Distal neurovascular examination is intact. Neurological exam: PRESENT: alert, awake, oriented to person, oriented to place, oriented to time, oriented to situation. ABSENT: motor sensory deficit Psychiatric exam: PRESENT: appropriate affect, normal mood. ABSENT: homicidal ideation, suicidal ideation Skin exam: PRESENT: dry, intact, warm. ABSENT: cyanosis, rash Results Laboratory Results: 03/29/18 03/29/18 11:13 13:55 WBC 10.2 RBC 3.32 L Hgb 9.3 L Hct 27.9 L MCV 84 MCH 28.0 MCHC 33.3 RDW 14.5 H Plt Count 299 Blood Type O NEGATIVE Antibody Screen NEGATIVE Impressions: Chest X-Ray 03/27/18 09:39 IMPRESSION: 1. Interval resolution of the right base atelectasis since the prior study dated 02/06/2018. 2. NO SIGNIFICANT RADIOGRAPHIC FINDING IN THE CHEST. Status: Imported from PACS Assessment & Plan - Diagnosis (1) Prosthetic hip infection Is this a current diagnosis for this admission?: Yes Plan: 62-year-old female status post I&D of her right hip wound yesterday. No results from microbiology yet today. Plan for empiric coverage with vancomycin pending culture results. Patient can be mobilized with physical therapy and weightbearing as tolerated basis. Anticipate the need for 6 weeks of IV antibiotic therapy pending culture results. - Time Time Spent with patient: 15-24 minutes Anticipated discharge: Home with Homehealth Within: Other
[2018-03-30 07:02] LABS: HEMATOCRIT 24.9 % (36.0-47.0); HEMOGLOBIN 8.2 g/dL (12.0-15.5); MEAN CORPUSCULAR HEMOGLOBIN 27.8 pg (27.0-33.4); MEAN CORPUSCULAR HGB CONC 33.1 g/dL (32.0-36.0); MEAN CORPUSCULAR VOLUME 84 fl (80-97); PLATELET COUNT 249 10^3/uL (150-450); RED BLOOD COUNT 2.96 10^6/uL (3.72-5.28); RED CELL DISTRIBUTION WIDTH 14.2 % (11.5-14.0); WHITE BLOOD COUNT 7.6 10^3/uL (4.0-10.5)
[2018-03-30 07:04] LABS: APPEARANCE,URINE CLEAR; BILIRUBIN,URINE NEGATIVE (NEGATIVE); COLOR,URINE YELLOW; GLUCOSE, URINE NEGATIVE (NEGATIVE); KETONES,URINE NEGATIVE (NEGATIVE); LEUKOCYTE ESTERASE,URINE NEGATIVE (NEGATIVE); NITRITE,URINE NEGATIVE (NEGATIVE); PROTEIN,URINE NEGATIVE (NEGATIVE); URINE SPECIFIC GRAVITY 1.009
[2018-03-30 07:28] LABS: ANION GAP 5 (5-19); BLOOD UREA NITROGEN 9 mg/dL (7-20); CALCIUM 7.6 mg/dL (8.4-10.2); CARBON DIOXIDE 29 mmol/L (22-30); CHLORIDE 104 mmol/L (98-107); GLUCOSE 107 mg/dL (75-110); SODIUM 137.5 mmol/L (137-145)
[2018-03-30] MEDS: POTASSIUM CHLORIDE 10 MEQ CAPSULE.ER PO SCH ×2 (10:44→17:11)
[2018-03-30] MEDS: ASPIRIN 81 MG TABLET, ENT COATED PO SCH (10:45)
[2018-03-30] MEDS: SENNOSIDES/DOCUSATE 8.6-50 MG 1 EACH TABLET PO SCH ×2 (10:45→17:11)
[2018-03-30] MEDS: OXYCODONE HCL SR 10 MG TABLET PO SCH ×2 (10:45→21:59)
[2018-03-30] MEDS: PRENATAL VITAMIN W DHA CAPSULE PO SCH (10:45)
[2018-03-30] MEDS: OXYCODONE HCL IR 5 MG TABLET PO SCH ×4 (11:19→22:00)
[2018-03-30 18:42] LABS: VANCOMYCIN,TROUGH 23.3 ug/mL (5.0-20.0)
[2018-03-31] MEDS: IBUPROFEN 800 MG in NORMAL SALINE 250 ML IV SCH ×2 (01:57→11:20)
[2018-03-31 05:28] LABS: HEMOGLOBIN 8.4 g/dL (12.0-15.5); MEAN CORPUSCULAR HEMOGLOBIN 28.6 pg (27.0-33.4); MEAN CORPUSCULAR HGB CONC 33.7 g/dL (32.0-36.0); MEAN CORPUSCULAR VOLUME 85 fl (80-97); PLATELET COUNT 257 10^3/uL (150-450); RED BLOOD COUNT 2.94 10^6/uL (3.72-5.28); RED CELL DISTRIBUTION WIDTH 14.3 % (11.5-14.0); WHITE BLOOD COUNT 7.2 10^3/uL (4.0-10.5)
[2018-03-31] MEDS: PREGABALIN 50 MG CAPSULE PO SCH ×3 (06:32→23:17)
[2018-03-31] MEDS: LANSOPRAZOLE 30 MG TAB.RAP.DR PO SCH (06:32)
[2018-03-31] MEDS: PREGABALIN 100 MG CAPSULE PO SCH ×3 (06:32→23:17)
--- NOTE | 2018-03-31 07:34 | PDOC PROGRESS REPORT ---
Subjective Progress Note for:: 03/31/18 Reason For Visit: DRAINING RIGHT HIP WOUND 62-year-old white female now postop day 2 status post I&D of her right hip wound. Cultures now demonstrating both gram-positive cocci and gram-negative rods. Patient remains afebrile. Pain is well controlled. Urinary retention continues and requires ARTRUO cath every 6. Physical Exam Vital Signs: Temp Pulse Resp BP Pulse Ox 37.9 C 88 16 123/59 L 99 03/30/18 23:31 03/30/18 23:31 03/30/18 23:31 03/30/18 23:31 03/30/18 23:31 Intake & Output 03/30/18 03/31/18 04/01/18 06:59 06:59 06:59 Intake Total 36540 2359 Output Total 13090 2650 Balance 1800 -291 Weight 122.7 kg 125.6 kg General appearance: PRESENT: no acute distress, obese Respiratory exam: PRESENT: unlabored Cardiovascular exam: PRESENT: RRR Pulses: PRESENT: +1 pedal pulses bilateral Vascular exam: PRESENT: normal capillary refill GI/Abdominal exam: PRESENT: soft Rectal exam: PRESENT: deferred Extremities exam: PRESENT: other - Right hip wound changed this morning. Wound is well approximated with leland. There is minimal erythema or induration. Scant serosanguineous drainage. Leg lengths are equal. Distal neurovascular examination is intact. Neurological exam: PRESENT: alert, awake, oriented to person, oriented to place, oriented to time, oriented to situation. ABSENT: motor sensory deficit Psychiatric exam: PRESENT: appropriate affect, normal mood. ABSENT: homicidal ideation, suicidal ideation Skin exam: PRESENT: dry, intact, warm. ABSENT: cyanosis, rash Results Laboratory Results: 03/31/18 05:14 03/30/18 17:50 03/30/18 03/30/18 03/31/18 06:05 17:50 05:14 WBC 7.2 RBC 2.94 L Hgb 8.4 L Hct 25.0 L MCV 85 MCH 28.6 MCHC 33.7 RDW 14.3 H Plt Count 257 Sodium 137.5 Potassium 3.0 L* Chloride 104 Carbon Dioxide 29 Anion Gap 5 BUN 9 Creatinine 0.58 0.71 Est GFR ( Amer) > 60 > 60 Est GFR (Non-Af Amer) > 60 > 60 Glucose 107 Calcium 7.6 L Impressions: Chest X-Ray 03/27/18 09:39 IMPRESSION: 1. Interval resolution of the right base atelectasis since the prior study dated 02/06/2018. 2. NO SIGNIFICANT RADIOGRAPHIC FINDING IN THE CHEST. Status: Imported from PACS Assessment & Plan - Diagnosis (1) Prosthetic hip infection Is this a current diagnosis for this admission?: Yes Plan: Continue dressing changes every shift, mobilization with physical therapy, and Rocephin for gram-negative mg coverage, and still PICC line. (2) Hypokalemia Is this a current diagnosis for this admission?: Yes Plan: Oral supplements yesterday. Repeat Chem-7 this morning. (3) Urinary retention Is this a current diagnosis for this admission?: Yes Plan: Continue I&O caths every 6 - Time Time Spent with patient: 15-24 minutes Anticipated discharge: Home with Homehealth Within: Other
[2018-03-31 10:36] LABS: HEMATOCRIT 27.2 % (36.0-47.0); HEMOGLOBIN 9.1 g/dL (12.0-15.5); MEAN CORPUSCULAR HEMOGLOBIN 28.3 pg (27.0-33.4); MEAN CORPUSCULAR HGB CONC 33.5 g/dL (32.0-36.0); MEAN CORPUSCULAR VOLUME 85 fl (80-97); PLATELET COUNT 266 10^3/uL (150-450); RED BLOOD COUNT 3.22 10^6/uL (3.72-5.28); RED CELL DISTRIBUTION WIDTH 14.5 % (11.5-14.0); WHITE BLOOD COUNT 6.7 10^3/uL (4.0-10.5)
[2018-03-31] MEDS: POTASSIUM CHLORIDE 10 MEQ CAPSULE.ER PO SCH ×2 (11:18→17:42)
[2018-03-31] MEDS: PRENATAL VITAMIN W DHA CAPSULE PO SCH (11:18)
[2018-03-31] MEDS: OXYCODONE HCL IR 5 MG TABLET PO SCH ×4 (11:19→23:17)
[2018-03-31] MEDS: ASPIRIN 81 MG TABLET, ENT COATED PO SCH (11:24)
[2018-03-31] MEDS ORDERED: NORMAL SALINE 10 ML SDV (AFTER EACH USE) IV PRN (11:30)
[2018-03-31 11:56] LABS: ANION GAP 7 (5-19); BLOOD UREA NITROGEN 11 mg/dL (7-20); CALCIUM 7.9 mg/dL (8.4-10.2); CARBON DIOXIDE 26 mmol/L (22-30); CHLORIDE 104 mmol/L (98-107); GLUCOSE 112 mg/dL (75-110); POTASSIUM 3.8 mmol/L (3.6-5.0); SODIUM 137.3 mmol/L (137-145)
[2018-03-31] MEDS ORDERED: CEFTRIAXONE SODIUM 2,000 MG in DEXTROSE 5%-WATER 100 ML IV SCH (12:00)
--- NOTE | 2018-03-31 12:00 | RADIOLOGY REPORT (SQ) ---
EXAM DESCRIPTION: PICC INSERTION; FLUORO/CV PLACEMENT; U/S GUIDE FOR VASCULAR ACCESS COMPLETED DATE/TIME: 03/31/2018 11:13 am REASON FOR STUDY: IV ACCESS Z96.649 PRESENCE OF UNSPECIFIED ARTIFICIAL HIP JOINT COMPARISON: None. FLUOROSCOPY TIME: 48 seconds 1 images saved to PACS. TECHNIQUE: Fluoroscopic and ultrasound guided PICC placement. LIMITATIONS: None. PROCEDURE: After written consent and assessment were obtained, the patient was brought into the fluo roscopy room and placed supine on the table. Ultrasound evaluation of potential access sites were per formed. After successfully identifying a patent left basilic vein, the left arm was prepped and drape d in a sterile fashion along with the ultrasound probe. The entry site was anesthetized with 1% lidoc sia. A 21 gauge 7 cm needle was advanced through the skin and into the basilic vein under live ultra sound guidance. An ultrasound image was saved to PACS confirming access site. A .018 guide wire was then inserted through the needle and into the venous system. The needle was then removed and an 11 b lade scalpel was used to make a 1cm skin incision. A 5 fr peel-away sheath was advanced over the wir e and into the venous system. A measurement was then made using the existing wire and live fluoroscop ic guidance. The wire was then removed and trimmed. The PICC was advanced through the peel-away sheat h and into the venous system. The peel-away sheath was removed and the catheter was adhered to the pa tients arm with a stat lock. The catheter was then aspirated and flushed and a sterile bandage was pl aced over the access site. A fluoroscopic spot image was saved to PACS confirming the catheter tip w ithin the right atrium. IMPRESSION: SUCCESSFUL PLACEMENT OF A 5 FR DUAL LUMEN 42 CM PICC IN THE LEFT BASILIC VEIN. COMMENT: Patient medication list reviewed: Yes- Quality ID# 130:Eligible professional attests to doc umenting in the medical record they obtained, updated, or reviewed the patient's current medications. . Quality ID 145: Final reports for procedures using fluoroscopy that document radiation exposure catie lindsay, or exposure time and number of fluorographic images (if radiation exposure indices are not avail able) Quality ID #76: The patient was prepped and draped using maximum sterile barrier technique including cap, mask, sterile gown, sterile gloves, a large sterile sheet, hand hygiene, and 2% Chlorhexidine fo r cutaneous antisepsis. When ultrasound is used, sterile ultrasound techniques are followed requiring sterile gel and sterile probes. TECHNICAL DOCUMENTATION: JOB ID: [id number] [employer]- All Rights Reserved rev-08/12 Reading location - IP/workstation name: [facility]
[2018-03-31] MEDS: VANCOMYCIN HCL 1,500 MG in DEXTROSE 5%-WATER 250 ML IV SCH ×2 (12:16→23:17)
[2018-03-31] MEDS: SENNOSIDES/DOCUSATE 8.6-50 MG 1 EACH TABLET PO SCH ×2 (12:17→17:42)
[2018-03-31] MEDS: OXYCODONE HCL SR 10 MG TABLET PO SCH (12:26)
[2018-03-31] MEDS: CEFTRIAXONE SODIUM 2,000 MG in DEXTROSE 5%-WATER 100 ML IV SCH (15:01)
[2018-03-31] MEDS: ACETAMINOPHEN 325 MG TABLET PO PRN (23:16)
[2018-04-01] MEDS: LANSOPRAZOLE 30 MG TAB.RAP.DR PO SCH (05:40)
[2018-04-01] MEDS: PREGABALIN 50 MG CAPSULE PO SCH ×3 (05:40→21:30)
[2018-04-01] MEDS: PREGABALIN 100 MG CAPSULE PO SCH ×3 (05:40→21:30)
[2018-04-01] MEDS: NORMAL SALINE 10 ML SDV (SCHEDULED) IV SCH ×3 (05:58→21:32)
[2018-04-01 06:03] LABS: HEMATOCRIT 25.9 % (36.0-47.0); HEMOGLOBIN 8.7 g/dL (12.0-15.5); MEAN CORPUSCULAR HEMOGLOBIN 28.3 pg (27.0-33.4); MEAN CORPUSCULAR HGB CONC 33.4 g/dL (32.0-36.0); MEAN CORPUSCULAR VOLUME 85 fl (80-97); PLATELET COUNT 238 10^3/uL (150-450); RED BLOOD COUNT 3.06 10^6/uL (3.72-5.28); RED CELL DISTRIBUTION WIDTH 14.4 % (11.5-14.0); WHITE BLOOD COUNT 9.7 10^3/uL (4.0-10.5)
--- NOTE | 2018-04-01 08:37 | PDOC PROGRESS REPORT ---
Subjective Progress Note for:: 04/01/18 Reason For Visit: DRAINING RIGHT HIP WOUND 62-year-old white female status post I&D of her right hip wound. Episode of febrile spike to 39.2 last night. Cultures have come back with staph and Proteus. Patient continues to be straight cathed for urinary retention. Making progress with physical therapy. Physical Exam Vital Signs: Temp Pulse Resp BP Pulse Ox 39.2 C H 99 16 126/56 H 99 04/01/18 01:31 04/01/18 01:31 04/01/18 01:31 04/01/18 01:31 04/01/18 01:31 Intake & Output 03/31/18 04/01/18 04/02/18 06:59 06:59 06:59 Intake Total 2609 3051 Output Total 2650 1150 Balance -41 1901 Weight 125.6 kg 127.4 kg General appearance: PRESENT: no acute distress, obese Head exam: PRESENT: normocephalic Respiratory exam: PRESENT: unlabored Cardiovascular exam: PRESENT: RRR Pulses: PRESENT: +1 pedal pulses bilateral Vascular exam: PRESENT: normal capillary refill GI/Abdominal exam: PRESENT: soft Rectal exam: PRESENT: deferred Extremities exam: PRESENT: other - Right hip dressing is clean dry and intact this morning. Leg lengths are equal. Distal neurovascular examination is intact. Neurological exam: PRESENT: alert, awake, oriented to person, oriented to place, oriented to time, oriented to situation. ABSENT: motor sensory deficit Psychiatric exam: PRESENT: appropriate affect, normal mood. ABSENT: homicidal ideation, suicidal ideation Skin exam: PRESENT: dry, intact, warm. ABSENT: cyanosis, rash Results Laboratory Results: 04/01/18 05:49 03/31/18 09:55 03/31/18 03/31/18 04/01/18 09:55 09:55 05:49 WBC 6.7 9.7 RBC 3.22 L 3.06 L Hgb 9.1 L 8.7 L Hct 27.2 L 25.9 L MCV 85 85 MCH 28.3 28.3 MCHC 33.5 33.4 RDW 14.5 H 14.4 H Plt Count 266 238 Sodium 137.3 Potassium 3.8 Chloride 104 Carbon Dioxide 26 Anion Gap 7 BUN 11 Creatinine 0.76 Est GFR ( Amer) > 60 Est GFR (Non-Af Amer) > 60 Glucose 112 H Calcium 7.9 L Impressions: Chest X-Ray 03/27/18 09:39 IMPRESSION: 1. Interval resolution of the right base atelectasis since the prior study dated 02/06/2018. 2. NO SIGNIFICANT RADIOGRAPHIC FINDING IN THE CHEST. Guidance Fluoroscopy 03/31/18 00:00 IMPRESSION: SUCCESSFUL PLACEMENT OF A 5 FR DUAL LUMEN 42 CM PICC IN THE LEFT BASILIC VEIN. Interventional Vascular Procedure 03/31/18 00:00 IMPRESSION: SUCCESSFUL PLACEMENT OF A 5 FR DUAL LUMEN 42 CM PICC IN THE LEFT BASILIC VEIN. PICC Line Insertion 03/31/18 00:00 IMPRESSION: SUCCESSFUL PLACEMENT OF A 5 FR DUAL LUMEN 42 CM PICC IN THE LEFT BASILIC VEIN. Status: Imported from PACS Assessment & Plan - Diagnosis (1) Prosthetic hip infection Is this a current diagnosis for this admission?: Yes Plan: Patient had been on Rocephin and vancomycin. Both the staff and the Proteus are sensitive to third-generation cephalosporins and hence the vancomycin will be discontinued and the Rocephin continued. (2) Hypokalemia Is this a current diagnosis for this admission?: Yes Plan: This has been corrected to 3.8 with oral supplementation (3) Urinary retention Is this a current diagnosis for this admission?: Yes Plan: Patient with persistent I&O caths. Also febrile spike to 39.2 C. Raises a question of underlying urinary tract infection. 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
[2018-04-01] MEDS: ASPIRIN 81 MG TABLET, ENT COATED PO SCH (10:55)
[2018-04-01] MEDS: POTASSIUM CHLORIDE 10 MEQ CAPSULE.ER PO SCH ×2 (10:55→18:48)
[2018-04-01] MEDS: SENNOSIDES/DOCUSATE 8.6-50 MG 1 EACH TABLET PO SCH ×2 (10:56→18:48)
[2018-04-01] MEDS: PRENATAL VITAMIN W DHA CAPSULE PO SCH (10:56)
[2018-04-01] MEDS: OXYCODONE HCL IR 5 MG TABLET PO SCH ×4 (10:56→21:32)
[2018-04-01] MEDS: CEFTRIAXONE SODIUM 2,000 MG in DEXTROSE 5%-WATER 100 ML IV SCH (14:38)
[2018-04-01 19:16] LABS: APPEARANCE,URINE SLIGHTLY-CLOUDY; BILIRUBIN,URINE NEGATIVE (NEGATIVE); COLOR,URINE YELLOW; GLUCOSE, URINE NEGATIVE (NEGATIVE); KETONES,URINE NEGATIVE (NEGATIVE); LEUKOCYTE ESTERASE,URINE NEGATIVE (NEGATIVE); NITRITE,URINE NEGATIVE (NEGATIVE); PROTEIN,URINE NEGATIVE (NEGATIVE); URINE SPECIFIC GRAVITY 1.015
[2018-04-02] MEDS: PREGABALIN 100 MG CAPSULE PO SCH ×3 (06:08→22:06)
[2018-04-02] MEDS: LANSOPRAZOLE 30 MG TAB.RAP.DR PO SCH (06:09)
[2018-04-02] MEDS: PREGABALIN 50 MG CAPSULE PO SCH ×3 (06:09→22:06)
--- NOTE | 2018-04-02 07:54 | PDOC PROGRESS REPORT ---
Subjective Progress Note for:: 04/02/18 Reason For Visit: DRAINING RIGHT HIP WOUND 62-year-old white female status post I&D of her right hip wound. Cultures positive for MSSA and Proteus. Patient on Rocephin. Episode of febrile spike yesterday but none since. Patient feels okay. Ambulating with physical therapy. Dressing changed by nursing 1 hour ago. Physical Exam Vital Signs: Temp Pulse Resp BP Pulse Ox 37.1 C 88 20 95/50 L 94 04/01/18 23:43 04/01/18 23:43 04/01/18 23:43 04/01/18 23:43 04/01/18 23:43 Intake & Output 04/01/18 04/02/18 04/03/18 06:59 06:59 06:59 Intake Total 3051 1370 120 Output Total 1150 2200 1050 Balance 1901 -830 -930 Weight 127.4 kg 123.1 kg General appearance: PRESENT: no acute distress, mild distress, obese Head exam: PRESENT: normocephalic Respiratory exam: PRESENT: unlabored Cardiovascular exam: PRESENT: RRR Pulses: PRESENT: +1 pedal pulses bilateral Vascular exam: PRESENT: normal capillary refill GI/Abdominal exam: PRESENT: soft Rectal exam: PRESENT: deferred Extremities exam: PRESENT: other - Right lower extremity dressing clean dry and intact. Leg lengths are equal. Distal neurovascular examination is intact. Results Laboratory Results: 04/01/18 05:49 03/31/18 09:55 04/01/18 18:30 Urine Color YELLOW Urine Appearance SLIGHTLY-CLOUDY Urine pH 6.0 Ur Specific [place] 1.015 Urine Protein NEGATIVE Urine Glucose (UA) NEGATIVE Urine Ketones NEGATIVE Urine Blood NEGATIVE Urine Nitrite NEGATIVE Ur Leukocyte Esterase NEGATIVE Urine WBC (Auto) 1 Urine RBC (Auto) 1 03/29/18 11:52 Hip - Right Gram Stain - Final 03/29/18 11:52 Hip - Right Wound Culture - Final Staphylococcus Aureus Proteus Mirabilis No Anaerobic Organisms Impressions: Chest X-Ray 03/27/18 09:39 IMPRESSION: 1. Interval resolution of the right base atelectasis since the prior study dated 02/06/2018. 2. NO SIGNIFICANT RADIOGRAPHIC FINDING IN THE CHEST. Guidance Fluoroscopy 03/31/18 00:00 IMPRESSION: SUCCESSFUL PLACEMENT OF A 5 FR DUAL LUMEN 42 CM PICC IN THE LEFT BASILIC VEIN. Interventional Vascular Procedure 03/31/18 00:00 IMPRESSION: SUCCESSFUL PLACEMENT OF A 5 FR DUAL LUMEN 42 CM PICC IN THE LEFT BASILIC VEIN. PICC Line Insertion 03/31/18 00:00 IMPRESSION: SUCCESSFUL PLACEMENT OF A 5 FR DUAL LUMEN 42 CM PICC IN THE LEFT BASILIC VEIN. Assessment & Plan - Diagnosis (1) Prosthetic hip infection Is this a current diagnosis for this admission?: Yes Plan: Mobilization with physical therapy. Continued IV antibiotic therapy. Dressing changes as needed. (2) Hypokalemia Is this a current diagnosis for this admission?: Yes Plan: Resolved (3) Urinary retention Is this a current diagnosis for this admission?: Yes Plan: UA is negative. - Time Time Spent with patient: 15-24 minutes Anticipated discharge: Home with Homehealth Within: within 24 hours - Plan Summary Plan Summary: Anticipate discharge home with home health nursing for IV antibiotic therapy.
[2018-04-02] MEDS: ASPIRIN 81 MG TABLET, ENT COATED PO SCH (09:33)
[2018-04-02] MEDS: SENNOSIDES/DOCUSATE 8.6-50 MG 1 EACH TABLET PO SCH ×2 (09:33→17:14)
[2018-04-02] MEDS: POTASSIUM CHLORIDE 10 MEQ CAPSULE.ER PO SCH ×2 (09:33→17:14)
[2018-04-02] MEDS: PRENATAL VITAMIN W DHA CAPSULE PO SCH (09:33)
[2018-04-02] MEDS: OXYCODONE HCL IR 5 MG TABLET PO SCH ×4 (09:34→22:06)
[2018-04-02] MEDS: NORMAL SALINE 10 ML SDV (SCHEDULED) IV SCH ×2 (09:36→22:05)
[2018-04-02] MEDS: CEFTRIAXONE SODIUM 2,000 MG in DEXTROSE 5%-WATER 100 ML IV SCH (14:25)
[2018-04-03] MEDS: LANSOPRAZOLE 30 MG TAB.RAP.DR PO SCH (06:18)
[2018-04-03] MEDS: PREGABALIN 100 MG CAPSULE PO SCH ×3 (06:18→22:40)
[2018-04-03] MEDS: PREGABALIN 50 MG CAPSULE PO SCH ×3 (06:18→22:40)
[2018-04-03] MEDS: POTASSIUM CHLORIDE 10 MEQ CAPSULE.ER PO SCH ×2 (09:29→17:24)
[2018-04-03] MEDS: SENNOSIDES/DOCUSATE 8.6-50 MG 1 EACH TABLET PO SCH ×2 (09:29→17:24)
[2018-04-03] MEDS: PRENATAL VITAMIN W DHA CAPSULE PO SCH (09:29)
[2018-04-03] MEDS: ASPIRIN 81 MG TABLET, ENT COATED PO SCH (09:29)
[2018-04-03] MEDS: NORMAL SALINE 10 ML SDV (SCHEDULED) IV SCH ×2 (09:29→22:40)
[2018-04-03] MEDS: OXYCODONE HCL IR 5 MG TABLET PO SCH ×4 (09:30→22:39)
[2018-04-03] MEDS: CEFTRIAXONE SODIUM 2,000 MG in DEXTROSE 5%-WATER 100 ML IV SCH (14:40)
[2018-04-04] MEDS: PREGABALIN 100 MG CAPSULE PO SCH ×3 (05:57→22:49)
[2018-04-04] MEDS: PREGABALIN 50 MG CAPSULE PO SCH ×3 (05:57→22:49)
[2018-04-04] MEDS: LANSOPRAZOLE 30 MG TAB.RAP.DR PO SCH (05:57)
--- NOTE | 2018-04-04 07:21 | PDOC PROGRESS REPORT ---
Subjective Progress Note for:: 04/04/18 Reason For Visit: DRAINING RIGHT HIP WOUND 62-year-old white female status post I&D of her draining right hip wound was opened cultures positive for Proteus and MSSA. Patient making reasonable progress with physical therapy. Continues on IV Rocephin therapy. Pain is reasonably well controlled. Physical Exam Vital Signs: Temp Pulse Resp BP Pulse Ox 38.0 C 91 16 113/51 L 92 04/04/18 00:00 04/04/18 00:00 04/04/18 00:00 04/04/18 00:00 04/04/18 00:00 Intake & Output 04/03/18 04/04/18 04/05/18 06:59 06:59 06:59 Intake Total 1545 1930 Output Total 6300 2550 Balance -4830 -620 Weight 125 kg 120.7 kg General appearance: PRESENT: no acute distress, obese Head exam: PRESENT: normocephalic Respiratory exam: PRESENT: unlabored Cardiovascular exam: PRESENT: RRR Pulses: PRESENT: +1 pedal pulses bilateral GI/Abdominal exam: PRESENT: soft Rectal exam: PRESENT: deferred Musculoskeletal exam: PRESENT: other - Right hip wound with continued serosanguineous drainage. Leg lengths are equal. Distal neurovascular examination is intact. Neurological exam: PRESENT: alert, awake, oriented to person, oriented to place, oriented to time, oriented to situation. ABSENT: motor sensory deficit Psychiatric exam: PRESENT: appropriate affect, normal mood. ABSENT: homicidal ideation, suicidal ideation Skin exam: PRESENT: dry, intact, warm. ABSENT: cyanosis, rash Results Laboratory Results: 04/01/18 05:49 03/31/18 09:55 03/29/18 11:52 Hip - Right Gram Stain - Final 03/29/18 11:52 Hip - Right Wound Culture - Final Staphylococcus Aureus Proteus Mirabilis No Anaerobic Organisms 04/01/18 18:30 Catheterized Urine Urine Culture - Final NO GROWTH 2 DAYS Impressions: Chest X-Ray 03/27/18 09:39 IMPRESSION: 1. Interval resolution of the right base atelectasis since the prior study dated 02/06/2018. 2. NO SIGNIFICANT RADIOGRAPHIC FINDING IN THE CHEST. Guidance Fluoroscopy 03/31/18 00:00 IMPRESSION: SUCCESSFUL PLACEMENT OF A 5 FR DUAL LUMEN 42 CM PICC IN THE LEFT BASILIC VEIN. Interventional Vascular Procedure 03/31/18 00:00 IMPRESSION: SUCCESSFUL PLACEMENT OF A 5 FR DUAL LUMEN 42 CM PICC IN THE LEFT BASILIC VEIN. PICC Line Insertion 03/31/18 00:00 IMPRESSION: SUCCESSFUL PLACEMENT OF A 5 FR DUAL LUMEN 42 CM PICC IN THE LEFT BASILIC VEIN. Status: Imported from PACS Assessment & Plan - Diagnosis (1) Prosthetic hip infection Is this a current diagnosis for this admission?: Yes Plan: Continue to mobilize with physical therapy and weightbearing as tolerated basis. Continue IV antibiotic therapy. (2) Hypokalemia Is this a current diagnosis for this admission?: Yes Plan: Resolved (3) Urinary retention Is this a current diagnosis for this admission?: Yes Plan: Resolved - Time Time Spent with patient: 15-24 minutes Anticipated discharge: Home with Homehealth Within: Other
[2018-04-04] MEDS: POTASSIUM CHLORIDE 10 MEQ CAPSULE.ER PO SCH ×2 (09:17→17:37)
[2018-04-04] MEDS: ASPIRIN 81 MG TABLET, ENT COATED PO SCH (09:17)
[2018-04-04] MEDS: PRENATAL VITAMIN W DHA CAPSULE PO SCH (09:18)
[2018-04-04] MEDS: SENNOSIDES/DOCUSATE 8.6-50 MG 1 EACH TABLET PO SCH ×2 (09:18→17:37)
[2018-04-04] MEDS: OXYCODONE HCL IR 5 MG TABLET PO SCH ×4 (09:18→22:49)
[2018-04-04] MEDS: NORMAL SALINE 10 ML SDV (SCHEDULED) IV SCH ×2 (09:18→22:48)
[2018-04-04] MEDS: CEFTRIAXONE SODIUM 2,000 MG in DEXTROSE 5%-WATER 100 ML IV SCH (14:25)
[2018-04-04] MEDS: ACETAMINOPHEN 325 MG TABLET PO PRN (22:50)
[2018-04-04 23:04] LABS: ABSOLUTE BASOPHILS # (AUTO) 0.1 10^3/uL (0.0-0.2); ABSOLUTE EOSINOPHILS # (AUTO) 0.3 10^3/uL (0.0-0.6); ABSOLUTE LYMPHOCYTES (AUTO) 1.7 10^3/uL (0.5-4.7); ABSOLUTE MONOCYTES (AUTO) 0.9 10^3/uL (0.1-1.4); ABSOLUTE NEUT (AUTO) 4.9 10^3/uL (1.7-8.2); BASOPHILS % (AUTO) 0.7 % (0-2); EOSINOPHILS % (AUTO) 3.6 % (0-6); HEMATOCRIT 24.9 % (36.0-47.0); HEMOGLOBIN 8.4 g/dL (12.0-15.5); LYMPHOCYTES % (AUTO) 21.6 % (13-45); MEAN CORPUSCULAR HGB CONC 33.6 g/dL (32.0-36.0); MEAN CORPUSCULAR VOLUME 83 fl (80-97); MONOCYTES % (AUTO) 11.6 % (3-13); PLATELET COUNT 249 10^3/uL (150-450); RED BLOOD COUNT 2.99 10^6/uL (3.72-5.28); RED CELL DISTRIBUTION WIDTH 14.8 % (11.5-14.0); SEGMENTED NEUTROPHILS % (AUTO) 62.5 % (42-78); TOTAL CELLS COUNTED % (AUTO) 100 %; WHITE BLOOD COUNT 7.8 10^3/uL (4.0-10.5)
[2018-04-04 23:40] LABS: ERYTHROCYTE SEDIMENTATION RATE 75 mm/hr (0-30)
[2018-04-05] MEDS: LANSOPRAZOLE 30 MG TAB.RAP.DR PO SCH (05:52)
[2018-04-05] MEDS: PREGABALIN 100 MG CAPSULE PO SCH ×3 (05:52→21:48)
[2018-04-05] MEDS: PREGABALIN 50 MG CAPSULE PO SCH ×3 (05:52→21:48)
[2018-04-05] MEDS ORDERED: MORPHINE SULFATE 10 MG/ML INJ IV PRN ×2 (07:23→07:24)
[2018-04-05] MEDS ORDERED: ZOLPIDEM TARTRATE 5 MG TABLET PO PRN (07:24)
[2018-04-05] MEDS ORDERED: OXYCODONE-ACETAMINOPHEN 5-325 MG TABLET PO PRN (07:24)
[2018-04-05] MEDS ORDERED: OXYCODONE HCL IR 5 MG TABLET PO PRN (07:24)
[2018-04-05] MEDS: SENNOSIDES/DOCUSATE 8.6-50 MG 1 EACH TABLET PO SCH ×2 (10:55→17:47)
[2018-04-05] MEDS: POTASSIUM CHLORIDE 10 MEQ CAPSULE.ER PO SCH ×2 (10:55→17:46)
[2018-04-05] MEDS: PRENATAL VITAMIN W DHA CAPSULE PO SCH (10:56)
[2018-04-05] MEDS: ASPIRIN 81 MG TABLET, ENT COATED PO SCH (10:56)
[2018-04-05] MEDS: OXYCODONE HCL IR 5 MG TABLET PO SCH ×4 (10:56→21:48)
[2018-04-05] MEDS: NORMAL SALINE 10 ML SDV (SCHEDULED) IV SCH ×2 (10:57→21:47)
[2018-04-05] MEDS: CEFTRIAXONE SODIUM 2,000 MG in DEXTROSE 5%-WATER 100 ML IV SCH (14:38)
[2018-04-06] MEDS: PREGABALIN 50 MG CAPSULE PO SCH ×2 (06:24→13:22)
[2018-04-06] MEDS: PREGABALIN 100 MG CAPSULE PO SCH ×2 (06:24→13:21)
[2018-04-06] MEDS: LANSOPRAZOLE 30 MG TAB.RAP.DR PO SCH (06:25)
--- NOTE | 2018-04-06 07:10 | Discharge Summary ---
Discharge Summary (SDC) - Discharge Final Diagnosis: Right hip periprosthetic infection Date of Surgery: 03/29/18 Discharge Date: 04/06/18 Condition: Good Forms: ASU Anesthesia D/C Instruction, Discharge POC-Surgical Service Treatment or Instructions: Weightbearing as tolerated ambulation. Dressing changes as needed. Prescriptions: Ceftriaxone Sodium [Rocephin Inj 2000 mg Vial] 2,000 mg IV DAILY@1500 #40 vial Oxycodone HCl/Acetaminophen [Percocet 10-325 mg Tablet] 1 tab PO Q4H PRN #60 tablet PRN Reason: Referrals: VASILE DRISCOLL MD [ACTIVE STAFF] - 04/12/18 1:30 pm Discharge Diet: As Tolerated, Regular Respiratory Treatments at Home: Deep Breathing/Coughing Discharge Activity: Balance Activity w/Rest, No Driving, No tub bath Home Care Assistance: Home Health Activities Provided by Home Health Agency: Detention, Physical Therapy Adaptive Devices on Discharge: Rolling Walker, Bedside Commode Report the Following to Your Physician Immediately: Shortness of Breath, Fever over 101 Degrees, Drainage-Foul Smelling
[2018-04-06] MEDS: SENNOSIDES/DOCUSATE 8.6-50 MG 1 EACH TABLET PO SCH (10:02)
[2018-04-06] MEDS: POTASSIUM CHLORIDE 10 MEQ CAPSULE.ER PO SCH (10:02)
[2018-04-06] MEDS: OXYCODONE HCL IR 5 MG TABLET PO SCH ×2 (10:02→15:18)
[2018-04-06] MEDS: ASPIRIN 81 MG TABLET, ENT COATED PO SCH (10:02)
[2018-04-06] MEDS: PRENATAL VITAMIN W DHA CAPSULE PO SCH (10:02)
[2018-04-06] MEDS: NORMAL SALINE 10 ML SDV (SCHEDULED) IV SCH (12:41)
[2018-04-06] MEDS: CEFTRIAXONE SODIUM 2,000 MG in DEXTROSE 5%-WATER 100 ML IV SCH (15:18)
[2018-04-06 16:48] VITALS: BP 106/52
== END 2018-04-06 17:40 | disposition home health service (06) | DRG 468 ==
LOC: INOR 09:34 → 4W 14:35
PROVIDERS: ADMIT Orthopaedic Surgery; ATTEND Orthopaedic Surgery
PROC: 0SP90JZ Removal of Synthetic Substitute from Right Hip Joint, Open Approach (ICD-10-PCS; 2018-03-29)
PROC: 0SP909Z Removal of Liner from Right Hip Joint, Open Approach (ICD-10-PCS; 2018-03-29)
PROC: 0S993ZX Drainage of Right Hip Joint, Percutaneous Approach, Diagnostic (ICD-10-PCS; 2018-03-29)
PROC: 0SR902Z Replacement of Right Hip Joint with Metal on Polyethylene Synthetic Substitute, Open Approach (ICD-10-PCS; principal; 2018-03-29 11:15)
PROC: 02H633Z Insertion of Infusion Device into Right Atrium, Percutaneous Approach (ICD-10-PCS; 2018-03-31)
PROC: B244ZZZ Ultrasonography of Right Heart (ICD-10-PCS; 2018-03-31)
DX: T84.51XA Infection and inflammatory reaction due to internal right hip prosthesis, initial encounter (principal); Y83.1 Surgical operation with implant of artificial internal device as the cause of abnormal reaction of the patient, or of later complication, without mention of misadventure at the time of the procedure; Z96.641 Presence of right artificial hip joint; E87.6 Hypokalemia; R33.9 Retention of urine, unspecified; B95.61 Methicillin susceptible Staphylococcus aureus infection as the cause of diseases classified elsewhere; B96.4 Proteus (mirabilis) (morganii) as the cause of diseases classified elsewhere; F41.9 Anxiety disorder, unspecified; Z83.3 Family history of diabetes mellitus
CPT/HCPCS: 01210; 36415; 36569; 71046; 76937; 77001; 80048; 80202; 81001; 82565; 82962; 85025; 85027; 85652; 86140; 86850; 86900; 86901; 87070; 87075; 87077; 87086; 87186; 87205; 93005; 93010; 94799; C1776; J0131; J0696; J1642; J1741; J2250; J2270; J2704; J3010; J3370; J3490; J7050; J7060; J7120

== ENCOUNTER → 2018-04-20 | Outpatient (CLI) | payer MEDICARE ==
[2018-04-20 15:17] LABS: ABSOLUTE BASOPHILS # (AUTO) 0.1 10^3/uL (0.0-0.2); ABSOLUTE EOSINOPHILS # (AUTO) 0.2 10^3/uL (0.0-0.6); ABSOLUTE LYMPHOCYTES (AUTO) 1.3 10^3/uL (0.5-4.7); ABSOLUTE MONOCYTES (AUTO) 0.5 10^3/uL (0.1-1.4); BASOPHILS % (AUTO) 1.5 % (0-2); EOSINOPHILS % (AUTO) 3.3 % (0-6); HEMATOCRIT 29.4 % (36.0-47.0); HEMOGLOBIN 9.6 g/dL (12.0-15.5); LYMPHOCYTES % (AUTO) 25.6 % (13-45); MEAN CORPUSCULAR HEMOGLOBIN 27.4 pg (27.0-33.4); MEAN CORPUSCULAR HGB CONC 32.6 g/dL (32.0-36.0); MEAN CORPUSCULAR VOLUME 84 fl (80-97); MONOCYTES % (AUTO) 10.5 % (3-13); PLATELET COUNT 242 10^3/uL (150-450); RED BLOOD COUNT 3.49 10^6/uL (3.72-5.28); RED CELL DISTRIBUTION WIDTH 17.3 % (11.5-14.0); SEGMENTED NEUTROPHILS % (AUTO) 59.1 % (42-78); TOTAL CELLS COUNTED % (AUTO) 100 %; WHITE BLOOD COUNT 5.2 10^3/uL (4.0-10.5)
[2018-04-20 15:45] LABS: ANION GAP 6 (5-19); BLOOD UREA NITROGEN 16 mg/dL (7-20); C-REACTIVE PROTEIN 19.3 mg/L (<10.0); CALCIUM 8.6 mg/dL (8.4-10.2); CARBON DIOXIDE 28 mmol/L (22-30); CHLORIDE 106 mmol/L (98-107); GLUCOSE 105 mg/dL (75-110); POTASSIUM 4.3 mmol/L (3.6-5.0); SODIUM 140.2 mmol/L (137-145)
[2018-04-20 16:00] LABS: ERYTHROCYTE SEDIMENTATION RATE 48 mm/hr (0-30)
== END ==
LOC: OD 14:21
PROVIDERS: ATTEND Orthopaedic Surgery
DX: M25.551 Pain in right hip (principal)
CPT/HCPCS: 36415; 80048; 85025; 85652; 86140